=== PATIENT | male | born 2000 | race Caucasian/White ===

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

== ENCOUNTER 2021-09-30 17:41 | Outpatient (REF) | payer MEDICAID, SELFPAY ==
[2021-10-02 11:08] LABS: COVID-19 RT-PCR UVMMC Result Negative (Negative)
== END 2021-09-30 17:42 | disposition home or self-care (01) ==
LOC: LBN 17:41
PROVIDERS: Visit Provider Physician Assistant Medical
DX: Z20.822 Contact with and (suspected) exposure to COVID-19 (principal)
CPT/HCPCS: U0003

== ENCOUNTER 2024-12-13 12:03 | Day surgery (SDC) | payer MEDICAID, SELFPAY ==
[2024-12-13 12:35] VITALS: BP 154/88; PULSE 95; RESP 14; TEMP 36.6; O2SAT 97
[2024-12-13] MEDS: Lactated Ringers 1,000 ML 80 ML IV (12:50)
[2024-12-13 13:52] VITALS: BMI 33.5
--- NOTE | 2024-12-13 13:52 | W.ANESPRE ---
General Info Date of Service Date Performed: 12/13/24 Height: 5 ft 11 in Weight: 109.2 kg Body Mass Index (BMI): 33.5 Surgical Procedure: Operation Date: 12/13/24 13:35 Proposed Procedure Side Surgeon p Gastroscopy Deejay Ivan MD Meds Allergies and Home Medications Allergies Allergy/AdvReac Type Severity Reaction Status Date / Time No Known Allergies Allergy Verified 12/13/24 12:27 Home Medication Medication Instructions Recorded clotrimazole 1 % topical cream 1 applic topical BID 04/06/23 (Antifungal (clotrimazole)) Current Visit Medications: Current Medications Generic Name Dose Route Start Last Admin Trade Name Freq PRN Reason Stop Dose Admin Ringer's Solution 1,000 mls @ 80 mls/hr 12/13/24 06:00 12/13/24 12:50 IV 12/13/24 23:59 80 mls/hr INFUSION ALTAGRACIA Administration IV Miscellaneous Supplies 1 each 12/13/24 06:00 Iv Access IV 12/13/24 23:59 DIRECTED ALTAGRACIA Sodium Chloride 0 ml 12/13/24 06:00 Normal Saline Flush 10 Ml Syr IV 12/13/24 23:59 PRN PRN Sodium Chloride 0 ml 12/13/24 06:00 Normal Saline 10 Ml Vial IJ 12/13/24 23:59 DIRECTED PRN Sterile Water 0 ml 12/13/24 06:00 Water,Injection,Sterile 10 Ml Vial IJ 12/13/24 23:59 DIRECTED PRN PFSH Active Problems Active Problems: Problem Status Onset Code ADHD Acute F90.9 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 Depression Chronic F32.A Elevated BP without diagnosis of hypertension Acute R03.0 Blood glucose elevated Acute R73.9 Penile pain Acute N48.89 Medical History Medical History History of chicken pox Tobacco Smoking/Tobacco Use Status: Never Alcohol Alcohol Intake: current Alcohol intake frequency: holidays/special occasions only Substance Use Substance use type: does not use Vital Signs and Lab Results Vital Signs Most Recent Vital Signs in EMR: Most Recent Vital Signs Temp Pulse Resp BP Pulse Ox 36.6 C 95 H 14 154/88 H 97 12/13/24 12:35 12/13/24 12:35 12/13/24 12:35 12/13/24 12:35 12/13/24 12:35 Anesthesia Assessment and Plan Anesthesia History Personal History: No History of General Anesthesia Family History: No Family History of Anesthesia Complications Exercise Tolerance Exercise Tolerance: Metabolic Equivalents>4 Pertinent Negatives Pertinent Negatives: No Symptoms of GERD Cardiac & Pulmonary Exam Cardiac Exam: Normal S1/S2 Heart Sounds Pulmonary Exam: Clear Bilateral Breath Sounds Implantable Cardiac Device Does patient have a Pacemaker or an ICD?: No Airway Exam Known Difficult Airway: No Mallampati Class: 2 Mouth Opening: Normal (> 3cm) Thyromental Distance: Greater than 3 cm Neck Range of Motion: Full ROM Neck Circumference: Normal Teeth Condition: Normal Dentition ASA Classification ASA Score: ASA 2 Emergency Case?: No NPO Status NPO Status: NPO Clears >2 hours, Solids >8 hours Anesthesia Plan Resuscitation Status: Full Code Anesthesia Technique: General Anesthesia Airway Planned: Natural Airway Monitors Used: Standard Monitors
--- NOTE | 2024-12-13 14:31 | ESO_PTH ---
PATIENT: Joshua Dominguez LOC: [facility] U#:[id number] AGE/SX: 24/M ROOM: RE12/13/[address]: Deejay Ivan MD : 2000 BED: DIS: 12/13/2024 SPEC #: [id number] RECD: 12/13/24 16:59 STATUS: [facility] #: [id number] ISREAL: 12/13/24 14:[address]: Deejay Ivan DEPT: Surgical Specimen RECD BY: Keisha Ballard ENTERED: 12/13/24 16:59 SP TYPE: [place] DANA DR: EUGENIO SOTO NP Tissues: 1 - ESOPHAGUS BIOPSY Procedures: GROSS AND MICRO LEVEL 4 Comments: [id number]
[2024-12-13 14:46] VITALS: BP 123/71; PULSE 116; RESP 16; TEMP 36.3; O2SAT 93
--- NOTE | 2024-12-13 14:50 | W.PM.DSUDISC ---
Date of service: 12/13/24 Discharge Plan Disposition Patient Disposition: Home Condition: Good Discharge Details Reason For Visit: Dysphagia Attending Provider: Deejay Ivan Primary Care Provider: EUGENIO SOTO Home Meds and New Rx's Prescriptions: New pantoprazole [Protonix] 20 mg tablet,delayed release (DR/EC) 20 mg PO DAILY Qty: 30 0RF Rx Instructions: Take 1 tablet by mouth every day Continued clotrimazole [Antifungal (clotrimazole)] 1 % cream 1 applic topical BID Discharge Instructions Additional Instructions: Joshua, it was good meeting you today, and I hope you feel well after the procedure. With regards to the sensation you been experiencing with swallowing, generally things are pretty normal along the length of your esophagus. My evaluation is a little bit limited at the bottom portion of the throat, as this area is quite difficult to visualize with the endoscope. Within the esophagus proper, however, upper and mid portions are all quite normal. I did find a small bit of inflamed tissue at the bottom part of your esophagus near the connection to your stomach. It certainly looks irritated, and I suppose this could be the cause of your symptoms. I removed this bit of tissue today, and I will send it to the pathologist for them to double check to see if there is any other diagnosis that we need to consider. Hopefully this will help you feel a little better. I provided the new prescription for a medication called Protonix, which is just a strong antacid medication. I would like you to take 1 tablet by mouth every day. Hopefully this will help the area that I addressed today heal normally. I have gone ahead and set up a follow-up appointment visit my office on December 30 at 11 AM. we can see how your symptoms are feeling at that point, and make any adjustments if needed. Please do not hesitate to ask if you need anything else in the meantime. Stand Alone Forms: Anesthesia Discharge Inst., Dileep Rodríguez (DSU), Portal Information Referrals: Deejay Ivan MD [ [facility] STAFF PHYSICIAN, Surgery] - 12/30/24 11:00 am Activity:: Activity as Tolerated Diet:: As Tolerated Discharge Orders Discharge Orders: Discharge Order (Routine); Ordered 12/13/24 Ordered By: Deejay Ivan DS: Diagnosis Discharge Diagnosis (1) Esophagitis: Status: Acute Asessment and Plan: Follow-up on pathology results; trial Protonix
--- NOTE | 2024-12-13 14:55 | W.ANESPOSTOP ---
Postoperative Evaluation Date, Time and Location Date Performed: 12/13/24 Time Performed: 14:55 Patient Location: Day Surgery Unit Vital Signs Most Recent Imported Vital Signs: Most Recent Vital Signs Temp Pulse Resp BP Pulse Ox 36.3 C L 116 H 16 123/71 93 12/13/24 14:46 12/13/24 14:46 12/13/24 14:46 12/13/24 14:46 12/13/24 14:46 Pain Score Most Recent Pain Score: Most Recent Pain Score Pain Level 0 12/13/24 14:46 Assessment Mental Status: Awake (Alert & Oriented to Patient Baseline) Airway and Respiratory Function: Patent airway with normal (patient baseline) respiratory exam Cardiovascular Function: Hemodynamically Stable Hydration Status: Adequately Hydrated Nausea & Vomiting: No Nausea or Vomiting Pain: Pt. Denies Any Pain Peripheral Nerve Block: Patient did not receive a nerve block
--- NOTE | 2024-12-13 15:04 | W.PM.ENDDOP ---
Date of service: 12/13/24 Time of Service: 15:04 Endoscopy Report DATE OF PROCEDURE: 12/13/24 PRE-OP DIAGNOSIS: Dysphagia POST-OP DIAGNOSIS: other (Esophagitis) PROCEDURE: EGD with biopsy SURGEON: Deejay Ivan ANESTHESIA TYPE: General:No Airway ESTIMATED BLOOD LOSS: 5 PATHOLOGY: other (Esophageal mass) COMPLICATIONS: None DISPOSITION: same day INDICATIONS: Joshua is a 24-year-old man who has been experiencing dysphagia and mild globus sensation after a near choking event on some food. FINDINGS: Small inflammatory mass at the distal esophagus near the GE junction PROCEDURE DESCRIPTION: After the initiation of anesthesia, and with the assistance of a bite block, I advanced a standard gastroscope through the mouth past the hypopharynx and into the esophagus. Under the direct vision of the scope, I advanced down the esophagus towards the stomach. The upper, mid, and lower esophagus were all normal in course and caliber. Mucosa was pink and healthy appearing. I saw no evidence of any laceration or retained foreign bodies. Z-line is regular at the GE junction which measures approximately 35 cm past the incisors. There is a small bit of friable inflammatory tissue just at the GE junction. I believe this is adjacent to the lesser curvature. I encircled this with an energize snare, and excised it under cautery. There was minimal bleeding. Small bit of tissue was obtained for pathology. Advanced down into the stomach, and then evaluation of the stomach was all totally normal. I did not appreciate any signs of hiatal herniation by retroflexion. I then emptied the stomach completely prior to removing the endoscope along the length of the esophagus 1 last time. Again, great care and attention was taken to ensure that there were no evidence of trauma to the esophagus. No other pathology was appreciated and the camera was completely removed as the anesthetic was discontinued and Joshua was allowed to awaken, and transferred to the same-day surgery unit.
[2024-12-13 15:20] VITALS: BP 124/72; PULSE 87; RESP 16; TEMP 36.6; O2SAT 95
== END 2024-12-13 15:30 | disposition home or self-care (01) ==
PROVIDERS: PCP Nurse Practitioner Family; Visit Provider Surgery
PROC: 0DJ68ZZ Inspection of Stomach, Via Natural or Artificial Opening Endoscopic (ICD-10-PCS; CPT 43235; principal; 2024-12-13 13:30)
DX: K20.90 Esophagitis, unspecified without bleeding (principal); K22.89 Other specified disease of esophagus
CPT/HCPCS: 43251; 88305; J2704

== ENCOUNTER 2024-12-26 14:10 | Outpatient (REF) | payer MEDICAID, SELFPAY ==
[2024-12-26 19:30] LABS: HCT 44.7 % (40.0-50.0); HGB 15.0 g/dL (13.5-17.5); MCH 30.2 pg (27.0-33.0); MCHC 33.6 % (32.0-36.0); MCV 90 fL (80-95); MPV 11.0 fL (8.0-11.0); Platelet Count 298 10^3/uL (130-400); RBC 4.97 10^6/uL (4.36-5.78); RDW 11.9 % (11.8-14.1); RDW-SD 39.1 fL; WBC 9.08 10^3/uL (4.4-10.8)
[2024-12-26 19:39] LABS: ALT 37 U/L (10-49); AST 24 U/L (<34); Albumin 4.8 g/dL (3.4-5.0); Alkaline Phosphatase 92 U/L (46-116); Anion Gap 10.2 mmol/L (3-11); BUN 16 mg/dL (9-23); Bilirubin, Total 0.40 mg/dL (0.2-1.2); CO2 25.8 mmol/L (20.0-31.0); Calcium 9.6 mg/dL (8.3-10.6); Chloride 106 mmol/L (98-107); Cholesterol 144 mg/dL (<200); Glucose 86 mg/dL (74-106); HDL Cholesterol 28 mg/dL (>40); Potassium 4.3 mmol/L (3.5-5.1); Sodium 142 mmol/L (136-145); Total Protein 7.5 g/dL (5.7-8.2)
[2024-12-26 20:09] LABS: Hemoglobin A1C 5.3 % (<5.7)
== END 2024-12-26 14:11 | disposition home or self-care (01) ==
LOC: NCHCN 14:10
PROVIDERS: PCP Nurse Practitioner Family; Visit Provider Nurse Practitioner Family
DX: Z00.00 Encounter for general adult medical examination without abnormal findings (principal); R03.0 Elevated blood-pressure reading, without diagnosis of hypertension; R73.9 Hyperglycemia, unspecified; Z68.33 Body mass index [BMI] 33.0-33.9, adult; E70.30 Albinism, unspecified; Z13.220 Encounter for screening for lipoid disorders
CPT/HCPCS: 80053; 80061; 85027; 83036